=== PATIENT | male | born 1955 | race Caucasian/White ===

== ENCOUNTER → 2021-01-17 | Outpatient (CLI) | payer MEDICARE, OTHER | LOC: KOH-I 09:40 | DX: R10.84 Generalized abdominal pain (principal) | CPT/HCPCS: 76705 ==

== ENCOUNTER → 2021-01-26 | Outpatient (CLI) | payer MEDICARE, OTHER | LOC: MRI 08:30 | DX: K76.9 Liver disease, unspecified (principal); R93.2 Abnormal findings on diagnostic imaging of liver and biliary tract; K76.89 Other specified diseases of liver | CPT/HCPCS: 74183; A9577 ==